=== PATIENT | female | born 1960 | race Caucasian/White ===

== ENCOUNTER 2020-05-01 10:00 | Outpatient (RCR) | payer MEDICARE, MEDICAID, SELFPAY ==
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
--- NOTE | 2020-04-17 13:01 | PC.NURSE ---
Reconciled medication with patient, patient's niece who is patients ENERGY PROJECTS LEAD who sets up her pill boxes, and pharmacy. Patient reports she is taking her medications as prescribed with the exception of her scheduled inhalers. When asked why she laughed and stated, slow suicide . When asked if patient was having suicidal thoughts of felt unsafe patient stated no. She denied plan or intent to harm herself. Patient identifies her dog as her protective factor. When asked how the groups were going patient stated that she is enjoying the program and it is going good. Feels the clinicians are attentive to those in the group and she thinks it is helpful. Educated patient about the importance of taking her prescribed inhalers and if she would think about restarting them. Patient stated she would think about it. Patient has the crisis number if needed and gave verbal permission to email her a copy of her safety plan.
--- NOTE | 2020-04-17 13:19 | HO.PHPPROGNO ---
Subjective Subjective Date of Service: 04/17/20 Reason For Visit: depression Interim History: Pt reports decreased symptoms of depression. She reports some anxiety related to situation with her dog and world wide politic, new president, ect. She reports PHP groups have been very helpful and have helped her cope with depression and anxiety. She denies SI/HI. She reports vivid sexual dreams but states not nightmares. She is taking both remeron and trazodone. We discussed d/c trazodone, will increase remeron to 15mg po qhs. Medication Compliance: Yes Side effects from medications: No Attending Groups: Yes Review of Systems Reports disequilibrium Cardiovascular: Reports no additional cardiovascular complaints Respiratory: Reports no additional respiratory complaints Reports disequilibrium Mental Status Exam Mental Status Exam Patient Appearance: Well Grooomed Patient Orientation: Person, Place, Time and Situation Level of Consciousness: Awake Patient Behavior: Appropriate Mood Description: Depressed Affect Description: Blunted Ability to Follow Directions: Good Speech Pattern: Clear, Appropriate and Spontaneous Speech Memory Description: Normal for Patient (unclear memory/cog given that pt has difficulty managing her own medications. No formal assessment completed as it was telehealth) Assessment & Plan Assessment & Plan (1) MDD (major depressive disorder), recurrent episode, moderate: Status: Acute Code(s): F33.1 - Major depressive disorder, recurrent, moderate Assessment and Plan: 1. Continue Cymbalta 60mg po daily 2. Increase remeron to 15mg po qhs. 3. Continue clonidine 0.1mg po qhs 3. D/c trazodone Certification I certify that partial hospital treatment is medically necessary due to the symptoms and problems resulting from the patient's mental illness and the failure to treat the patient at the partial hospital level of care would likely result in the patient requiring inpatient psychiatric care which could not be prevented at a less intensive level of care. Greater than 50% of the session was spent on counseling and/or coordination of care Discharge Plan Discharge Attending provider: Cassius Grier Medications: No Action clonidine HCl 0.1 mg Tablet 0.1 mg PO BEDTIME RF: 0 trazodone 50 mg Tablet 50 mg PO BEDTIME PRN (Reason: Insomnia) RF: 0 morphine 30 mg Tablet Extended Release 30 mg PO Q12H RF: 0 oxycodone-acetaminophen 5-325 mg Tablet 1 tab PO Q6H RF: 0 montelukast 10 mg Tablet 10 mg PO DAILY RF: 0 topiramate 200 mg Tablet 200 mg PO DAILY RF: 0 topiramate 200 mg Tablet 400 mg PO BEDTIME RF: 0 dicyclomine 10 mg Capsule 10 mg PO QID RF: 0 loratadine 10 mg Tablet 10 mg PO BEDTIME RF: 0 mirtazapine 7.5 mg Tablet 7.5 mg PO BEDTIME RF: 0 duloxetine 60 mg Capsule,Delayed Release(Dr/Ec) 60 mg PO DAILY RF: 0 Advair HFA 230-21 mcg/actuation Hfa Aerosol Inhaler 2 puff INHALATION BID RF: 0 Dexilant 60 mg Capsule,Biphase Delayed Releas 60 mg PO BID RF: 0 Myrbetriq 50 mg Tablet Extended Release 24 Hr 50 mg PO DAILY RF: 0 Arnuity Ellipta 100 mcg/actuation Blister With Device 1 inh INHALATION DAILY RF: 0 ascorbic acid (vitamin C) [Vitamin C] 500 mg Tablet 500 mg PO BID RF: 0 albuterol sulfate [Ventolin HFA] 90 mcg/actuation Hfa Aerosol Inhaler 2 puff INHALATION Q4H PRN (Reason: Shortness Of Breath) RF: 0 cholecalciferol (vitamin D3) [Vitamin D3] 50 mcg (2,000 unit) Capsule 50 mcg PO DAILY RF: 0 amitriptyline 25 mg Tablet 25 mg PO BID PRN (Reason: Muscle Spasm) RF: 0 Telehealth Telehealth Location of provider rendering services: practice address Location of patient: address on file Patient Identification confirmed using: Name, : Yes Telehealth method: video Patient verbally consented to treatment: Yes Patient verbally consented to billing insurance company: Yes Patient informed of any privacy concerns related to visit: Yes Time spent with patient (mins): 20
[2020-04-17 14:17] VITALS: BMI 25.3
--- NOTE | 2020-04-18 14:19 | PC.NURSE ---
Spoke to [employer]'s ADMINISTRATIVE SALES ASSISTANT Carole Darling who manages patients medications and let her know that patient's Trazodone has been discontinued and Mirtazapine increased to 15 mg po at HS by the PHP provider Veronica URENA.
--- NOTE | 2020-04-19 13:44 | PC.NURSE ---
I attempted to call pt after she abruptly left the first group wile receiving feedback after sharing about traumatic issues. I was unable to reach her. After consulting with staff, I called pt's niece, Carole (emergency contact). Carole said she is with pt, and has been there all orning. She said t left group because of internet problems, and said pt is fine , and that they are attempting to reconnect.
--- NOTE | 2020-04-19 14:45 | PC.NURSE ---
I called and LM for Mehreen Ramirez at [facility] to inquire about day treatment (which is now the early intensive recovery group ) for pt. I then called [facility] central registration, and spoke to a staff member about this, who recommended for me to call kevan to see of the program might be a good fit. I then called and LM for Tri ([phone]). If Tri says the program is a good fit and there is availability, I was told to call central registration back to register pt.
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
--- NOTE | 2020-04-29 13:05 | HO.PHPPROGNO ---
Subjective Subjective Date of Service: 04/29/20 Reason For Visit: depression Interim History: Pt reports PHP program has been beneficial in that she has learned coping skills to deal with situation she can't change such as covid/isolation. She reports it was helpful to talk about her emotions and hear others. She reports sleep still is unpredictable. Some nights she is able to sleeps and others she has difficulty falling and staying asleep. She reports other times if she has nightmares, she will wake up. Pt shaved her hair off, she states this is a way of new start. She denies SI/HI. She reports overall depression is less, but knows it will be a chronic struggle. Review of Systems Reports disequilibrium Cardiovascular: Reports no additional cardiovascular complaints Respiratory: Reports no additional respiratory complaints Reports disequilibrium Mental Status Exam Mental Status Exam Narrative: Patient Appearance: Well Grooomed Patient Orientation: Person, Place, Time and Situation Level of Consciousness: Awake Patient Behavior: Appropriate Mood Description: better Affect Description: Brighter, non labile Ability to Follow Directions: Good Speech Pattern: Clear, Appropriate and Spontaneous Speech Memory Description: alert, oriented x 3. (unclear memory/cog given that pt has difficulty managing her own medications. No formal assessment completed as it was telehealth) Level of Consciousness: Alert Mood Description: Flat Affect Description: Flat Patient Cognition Impaired: No Ability to Follow Directions: Good Speech Pattern: Spontaneous Speech Memory Description: Intact Diagnostics Vital Signs (24Hr): Body Mass Index 25.3 Assessment & Plan Assessment & Plan (1) MDD (major depressive disorder), recurrent episode, moderate: Status: Acute Code(s): F33.1 - Major depressive disorder, recurrent, moderate Assessment and Plan: -Continue current plan of care. - Continue Cymbalta 60mg po daily - Continue remeron 15mg po qhs - Continue clonidine 0.1mg po qhs -d/c trazodone Certification I certify that partial hospital treatment is medically necessary due to the symptoms and problems resulting from the patient's mental illness and the failure to treat the patient at the partial hospital level of care would likely result in the patient requiring inpatient psychiatric care which could not be prevented at a less intensive level of care. Greater than 50% of the session was spent on counseling and/or coordination of care Discharge Plan Discharge Attending provider: Cassius Grier Medications: Discontinued trazodone 50 mg Tablet 50 mg PO BEDTIME PRN (Reason: Insomnia) RF: 0 mirtazapine 7.5 mg Tablet 7.5 mg PO BEDTIME RF: 0 No Action clonidine HCl 0.1 mg Tablet 0.1 mg PO BEDTIME RF: 0 morphine 30 mg Tablet Extended Release 30 mg PO Q12H RF: 0 oxycodone-acetaminophen 5-325 mg Tablet 1 tab PO Q6H RF: 0 montelukast 10 mg Tablet 10 mg PO DAILY RF: 0 topiramate 200 mg Tablet 200 mg PO DAILY RF: 0 topiramate 200 mg Tablet 400 mg PO BEDTIME RF: 0 dicyclomine 10 mg Capsule 10 mg PO QID RF: 0 loratadine 10 mg Tablet 10 mg PO BEDTIME RF: 0 duloxetine 60 mg Capsule,Delayed Release(Dr/Ec) 60 mg PO DAILY RF: 0 Advair HFA 230-21 mcg/actuation Hfa Aerosol Inhaler 2 puff INHALATION BID RF: 0 Dexilant 60 mg Capsule,Biphase Delayed Releas 60 mg PO BID RF: 0 Myrbetriq 50 mg Tablet Extended Release 24 Hr 50 mg PO DAILY RF: 0 Arnuity Ellipta 100 mcg/actuation Blister With Device 1 inh INHALATION DAILY RF: 0 ascorbic acid (vitamin C) [Vitamin C] 500 mg Tablet 500 mg PO BID RF: 0 albuterol sulfate [Ventolin HFA] 90 mcg/actuation Hfa Aerosol Inhaler 2 puff INHALATION Q4H PRN (Reason: Shortness Of Breath) RF: 0 cholecalciferol (vitamin D3) [Vitamin D3] 50 mcg (2,000 unit) Capsule 50 mcg PO DAILY RF: 0 amitriptyline 25 mg Tablet 25 mg PO BID PRN (Reason: Muscle Spasm) RF: 0 mirtazapine 7.5 mg Tablet 15 mg PO BEDTIME RF: 0 Telehealth Telehealth Location of provider rendering services: practice address Location of patient: address on file Patient Identification confirmed using: Name, : Yes Telehealth method: video Patient verbally consented to treatment: Yes Patient verbally consented to billing insurance company: Yes Patient informed of any privacy concerns related to visit: Yes Time spent with patient (mins): 15
--- NOTE | 2020-04-30 07:46 | PC.NURSE ---
I called Zhang Moreno to inquire about [facility] program (day treatment). His VM states the program is closed due to COVID.
--- NOTE | 2020-04-30 07:49 | PC.NURSE ---
I recieved a message from Tri at [facility]'s day treatment in response to my inquirey. She said the current version of day treatment is now at capacity, and that they are not taking new clients. She said if you are calling about Kiet Michelle, we think she would benefit from a referal to a DBT We've worked with her before . I then spoke to pt.I asked if she might want a referral for a DBT group. She declined. She said she doesn't want a group to learn coping skills.
--- NOTE | 2020-04-30 10:00 | PC.NURSE ---
I called Lola Alves, director of [facility]'s CSP program ([phone]), and LM asking if a client with pt's insurance is eligible for a CSP worker. I asked her to pls call back.
--- NOTE | 2020-05-01 15:03 | PC.NURSE ---
I called and left a detailed message with pt's therapist, Hali Caputo ([phone]) at [facility] in [place]. I let her know about aftercare plans and pt's clinical disposition.
== END 2020-05-01 23:55 | disposition home or self-care (01) ==
LOC: HO.PHPA 10:00
PROVIDERS: Visit Provider Psychiatry & Neurology Psychiatry
DX: F33.1 Major depressive disorder, recurrent, moderate (principal); Z79.899 Other long term (current) drug therapy; Z91.5 Personal history of self-harm; Z62.810 Personal history of physical and sexual abuse in childhood
CPT/HCPCS: 90791; 90853; 99203; 99213